=== PATIENT | female | born 1985 | race Caucasian/White ===

== ENCOUNTER 2021-01-11 20:54 | Emergency (ER) | payer SELFPAY ==
[~2021-01-11] VITALS: Ht 172.7 cm; Wt 150.0 kg
[2021-01-11] MEDS ORDERED: KETOROLAC 30 MG/ML VIAL. IVP ONE (22:00)
[2021-01-11] MEDS ORDERED: diphenhydrAMINE 50 MG/ML VIAL IVP ONE (22:00)
[2021-01-11] MEDS ORDERED: PROCHLORPERAZINE 10 MG/2 ML VIAL. IV ONE (22:00)
[2021-01-11] MEDS ORDERED: DEXAMETHASONE SOD PHOS 10 MG/ML VIAL. IV ONE (22:00)
[2021-01-11] MEDS ORDERED: acetaZOLAMIDE SODIUM 500 MG VIAL. IVP ONE (22:00)
--- NOTE | 2021-01-11 22:12 | PHYS DOC ---
Past History Additional Past Medical Histor: History of possible pseudotumor cerebri versus chronic migraine headaches Past Surgical History: Cholecystectomy Smoking: Non-smoker General Adult EDM: Chief Complaint: Chronic headaches, recently released from [facility] HPI: HPI: 36-year-old female has a long history of chronic headaches, the patient states that she has "migraines, they never really told me what it was I do not know", has had years of these headaches, says that she has a dull and throbbing bifrontal headache, associated with some nausea, no neck stiffness or photophobia, no fevers or chills, says that she had originally gone to the emergency room at [facility] and then had subsequently gotten admitted to the hospital, she said subsequently she had a consultation by neurologist and subsequently says that they had done a lumbar puncture and says "my pressure was 28 or something like that", they discharged her with a prescription for amitriptyline and Topamax, pt says. She has not seen a neurologist as an outpatient recently Review of Systems: Review of Systems: General: no fevers , no chills, no general weakness Eyes: no blurred vision, no diplopia Skin: no rashes Neck: no swelling, no neck stiffness, no neck pain Heme: no bleeding, no lymph node enlargement Ear/Nose/Throat: No sore throat, no runny nose, no hearing loss, no difficulty swallowing Cardiovascular: no Chest pain, no palpitations Respiratory: No dyspnea, no cough, no hemoptysis Gastrointestinal: No abdominal pain, + nausea, no vomiting, no diarrhea, no blood in stool Genitourinary: no dysuria, no hematuria Musculoskeletal: no back pain, no leg pain, no arm pain, no arthralgia Neurologic: + headaches, no dizziness, no focal numbness/tingling, no focal weakness Psych: no depression, no anxiety, no SI/HI *All review of systems are negative other than what is noted above Current Medications: Current Meds: Current Medications Medications (Trade) Dose Ordered Sig/Estefani Start Time Stop Time Status Last Admin Dose Admin Acetazolamide Sodium (Diamox Inj) 500 mg 1X ONCE 01/11/21 22:00 01/11/21 22:01 UNV Dexamethasone Sodium Phosphate (Decadron) 10 mg 1X ONCE 01/11/21 22:00 01/11/21 22:01 UNV Diphenhydramine HCl (Benadryl) 50 mg 1X ONCE 01/11/21 22:00 01/11/21 22:01 UNV Ketorolac Tromethamine (Toradol 30mg Vial) 30 mg 1X ONCE 01/11/21 22:00 01/11/21 22:01 UNV Prochlorperazine Edisylate (Compazine) 10 mg 1X ONCE 01/11/21 22:00 01/11/21 22:01 UNV Allergies: Allergies: Allergies Coded Allergies Type Severity Reaction Last Updated Verified ondansetron Allergy Unknown 01/11/21 Yes prednisone Allergy Unknown 01/11/21 Yes Physical Exam: PE: Gen-well appearing, no acute distress Head: Normocephalic/Atraumatic ENT: atraumatic, PERRLA, EOMI, oropharynx clear Neck: supple, full ROM/strength, no JVD, no nuchal rigidity Lungs: no distress, speaks in full sentences, Clear to auscultation bilaterally CV: reg rate, rhythm, no murmus/rubs/gallops, peripheral pulses equal in all extremities Abdomen: soft/nontender, no guarding/rebound tenderness, no rigidity, non distended, normoactive bowel sounds Musculoskeletal: full ROM/strength in all extremities, atraumatic, no swelling Back: full range of motion/strength Skin: intact, no rashes Lymph: no gross LUMA Neuro: alert and oriented x 4, CN 2-12 grossly intact, Motor strength is 5/5 in all extremities, no focal sensory deficits, no focal ataxia, ambulatory with mirian maninder gait Psych: normal mood/affect Current Patient Data: Labs: Laboratory Tests Test 01/11/21 21:38 POC Urine HCG, Qualitative hcg negative (Negative) Vital Signs: Vital Signs Date Time Temp Pulse Resp B/P (MAP) Pulse Ox O2 Delivery O2 Flow Rate FiO2 01/11/21 20:55 98.0 98 18 124/77 98 Room Air EKG: EKG: [] Radiology/Procedures: Radiology/Procedures: [] Heart Score: C/O Chest Pain: No Risk Factors: Risk Factors: DM, Current or recent (<one month) smoker, HTN, HLP, family history of CAD, obesity. Risk Scores: Score 0 - 3: 2.5% MACE over next 6 weeks - Discharge Home Score 4 - 6: 20.3% MACE over next 6 weeks - Admit for Clinical Observation Score 7 - 10: 72.7% MACE over next 6 weeks - Early Invasive Strategies Course & Med Decision Making: Course & Med Decision Making Pertinent Labs and Imaging studies reviewed. (See chart for details) [] 36-year-old female presents to the emergency department with what appears to be an acute on chronic headache and her prior history is suspicious for possible pseudotumor cerebri versus chronic migraine headache, the headache was of gradual onset not thunderclap in nature, the patient is neurologically intact, no focal findings and specifically no clinical signs of any papilledema or vision impairment, differential included not limited to tension headache, cluster headache, unlikely any intracranial bleeding, stroke, meningitis or venous sinus thrombosis, she will be given a series of medications, leaves to treat headaches in the emergency room and I will also give her some Diamox, unclear if this had been given to her in the past medical indication for ED work-up or imaging, will reevaluate examined her in the midst of a work-up to determine the best course of action at that point Update at 1:25 AM: The patient is now feeling better, head CT was performed abdomen abundance of caution and is negative, I believe she stable for discharge at the time of her close up patient primary care follow-up Patient was seen in the ED for chronic headaches, improved in the ED there is no apparent evidence of any emergency medical pathology at this time, patient was advised follow-up with their primary care provider /physician in the next 24-48 hours, also with neurology in the same timeframe, and to return to the ED before then if any new or worsening / concerning symptoms had developed. All questions and concerns were addressed at time of disposition I will add on Diamox to her regimen at of a presumption for possible pseudotumor cerebri and I will also add on naproxen a known medicine to treat migraine headaches as well as a nausea medicine Angion Disclaimer: Yumiko Disclaimer: This electronic medical record was generated, in whole or in part, using a voice recognition dictation system. Departure Departure: Impression: Primary Impression: Headache Qualified Codes: R51.9 - Headache, unspecified Disposition: HOME / SELF CARE / HOMELESS Condition: IMPROVED Referrals: ANDREAS HERNANDEZ MD, AMMAR MD Patient Instructions: General Headache Without Cause, Idiopathic Intracranial Hypertension Additional Instructions: I recommend you follow-up with a neurologist and I am referring you to Dr. Gregory, and to a primary care doctor and I recommend he follow-up with him in the next 48 hours, I am going to add on acetazolamide which is a medicine commonly used to treat idiopathic intracranial hypertension which you may have but I think you need to see a neurologist to get a final formal diagnosis. Return to the nearest emergency room before follow-up with any new or worsening/concerning symptoms develop Scripts Methylprednisolone (MEDROL) 4 Mg Tab.ds.pk 1 PKG PO UD for for headache, #1 PKG Prov: BIBI ORNELAS MD 01/12/21 Acetazolamide (ACETAZOLAMIDE) 125 Mg Tablet 1 TAB PO BID for pain for 15 Days, #30 TAB 0 Refills Prov: BIBI ORNELAS MD 01/12/21 Naproxen Sodium (ANAPROX DS) 550 Mg Tablet 1 TAB PO BID for pain for 15 Days, #30 TAB 0 Refills Prov: BIBI ORNELAS MD 01/12/21 BIBI ORNELAS MD Jan 11, 2021 22:12
[2021-01-12] MEDS ORDERED: HYDROcodone/APAP 5/325MG 1 TAB TABLET PO ONE (00:45)
[2021-01-12 01:22] VITALS: BP 115/64
[2021-01-12] MEDS ORDERED: METH4TAB2 PO (01:28)
[2021-01-12] MEDS ORDERED: NAPR-682 PO (01:28)
[2021-01-12] MEDS ORDERED: ACET125T2 PO (01:28)
--- NOTE | 2021-01-12 02:42 | RAD ---
EXAM: CT HEAD WITHOUT CONTRAST. HISTORY: Persistent headache. TECHNIQUE: Computed tomography of the head was performed without intravenous contrast. One or more of the following individualized dose reduction techniques were utilized for this examination: 1. Automated exposure control. 2. Adjustment of the mA and/or kV according to patient size. 3. Use of iterative reconstruction technique. COMPARISON: None. FINDINGS: There is no intracranial hemorrhage. Kingsley-white differentiation is preserved. The ventricle s are normal in size and position. The visualized paranasal sinuses appear clear. The orbits are unremarkable. The temporal bones are un remarkable. The calvarium reveals no suspicious lesions. IMPRESSION: 1. No acute intracranial findings. Electronically signed by: Cherrie Morocho MD (01/12/2021 2:40 AM) [facility]
== END 2021-01-12 01:40 | disposition home or self-care (01) ==
LOC: ER 20:54
DX: R51.9 Headache, unspecified (principal); R11.0 Nausea; Z88.8 Allergy status to other drugs, medicaments and biological substances
CPT/HCPCS: 70450; 81025; 96374; 96375; 99285; J0780; J1100; J1120; J1200; J1885

== ENCOUNTER 2021-01-19 03:42 | Emergency (ER) | payer SELFPAY ==
[~2021-01-19] VITALS: Ht 172.7 cm; Wt 150.0 kg
[2021-01-19 03:42] VITALS: BP 135/88
[~2021-01-19 03:42] MED LIST: ACET125T2 PO; METH4TAB2 PO; NAPR-682 PO
[2021-01-19] MEDS ORDERED: KETOROLAC 30 MG/ML VIAL. IVP ONE (04:00)
[2021-01-19] MEDS ORDERED: diphenhydrAMINE 50 MG/ML VIAL IVP ONE (04:00)
[2021-01-19] MEDS ORDERED: IV NORMAL SALINE 1,000ML 1,000 ML IV ONE (04:00)
[2021-01-19] MEDS ORDERED: METOCLOPRAMIDE HCL 10 MG/2 ML VIAL. IVP ONE (04:00)
--- NOTE | 2021-01-19 04:07 | PHYS DOC ---
Past History Additional Past Medical Histor: History of possible pseudotumor cerebri versus chronic migraine headaches Past Surgical History: Cholecystectomy Smoking: Non-smoker Alcohol Use: None General Adult EDM: Chief Complaint: HEADACHE HPI: HPI: 36-year-old female presents with headache and fall at home. The patient told the nurse that she has had a headache for 24 days. She was seen recently in this emergency room as well as the [facility] system. She tells me that she came in tonight because she was getting out of the shower and she slipped and hit her head. No loss of consciousness. This made her headache worse and she was concerned. She denies any numbness, tingling, altered sensation. She has stated intermittent losses of vision, but states that this has been going on for a while. She has had episodes of vomiting today and yesterday which has made her unable to take her migraine prophylactic medications. She denies fever or chills. She denies any other injuries at this time. Review of Systems: Review of Systems: Constitutional: Denies fever or chills Eyes: Denies change in visual acuity HENT: Denies nasal congestion or sore throat Respiratory: Denies cough or shortness of breath Cardiovascular: Denies chest pain or edema GI: Denies abdominal pain, nausea, vomiting, bloody stools or diarrhea : Denies dysuria Musculoskeletal: Denies back pain or joint pain Integument: Denies rash Neurologic: Headache. Denies focal weakness or sensory changes Endocrine: Denies polyuria or polydipsia Lymphatic: Denies swollen glands Psychiatric: Denies depression or anxiety Current Medications: Current Meds: Current Medications Medications (Trade) Dose Ordered Sig/Estefani Start Time Stop Time Status Last Admin Dose Admin Diphenhydramine HCl (Benadryl) 25 mg 1X ONCE 01/19/21 04:00 01/19/21 04:01 DC Ketorolac Tromethamine (Toradol 30mg Vial) 30 mg 1X ONCE 01/19/21 04:00 01/19/21 04:01 DC Metoclopramide HCl (Reglan Vial) 10 mg 1X ONCE 01/19/21 04:00 01/19/21 04:01 DC Sodium Chloride 1,000 ml @ 1,000 mls/hr 1X ONCE 01/19/21 04:00 01/19/21 04:59 Allergies: Allergies: Allergies Coded Allergies Type Severity Reaction Last Updated Verified ondansetron Allergy Unknown 01/11/21 Yes prednisone Allergy Unknown 01/11/21 Yes Physical Exam: PE: Constitutional: Well developed, well nourished, morbidly obese, no acute distress, non-toxic appearance. [] HENT: Normocephalic, atraumatic, bilateral external ears normal, oropharynx moist, no oral exudates, nose normal. [] Eyes: PERRLA, EOMI, conjunctiva normal, no discharge. [] Neck: Normal range of motion, no tenderness, supple, no stridor. [] Cardiovascular: Heart rate regular rhythm, no murmur [] Lungs & Thorax: Bilateral breath sounds clear to auscultation [] Abdomen: Bowel sounds normal, soft, no tenderness, no masses, no pulsatile masses. [] Skin: Warm, dry, no erythema, no rash. [] Back: No tenderness, no CVA tenderness. [] Extremities: No tenderness, no cyanosis, no clubbing, ROM intact, no edema. [] Neurologic: Alert and oriented X 3, normal motor function, normal sensory function, no focal deficits noted. [] Psychologic: Affect normal, judgement normal, mood anxious. [] EKG: EKG: [] Radiology/Procedures: Radiology/Procedures: [] Impressions: STUDY: CT head without contrast INDICATION: Headache. COMPARISON: 01/11/2021 TECHNIQUE: Axial CT imaging through the head without the use of intravenous contrast. Sagittal and coronal reformats were obtained. One or more of the following individualized dose reduction techniques were u tilized for this examination: 1. Automated exposure control 2. Adjustment of the mA and/or kV according to patient size 3. Use of iterative reconstruction technique. FINDINGS: No acute intracranial hemorrhage. No mass effect, midline shift or hydrocep halus. Kingsley-white matter differentiation is maintained. Unremarkable calvarium. No layering fluid seen within the visualized paranasal sinuses. Unremarkable mastoid air cells and middle ears. IMPRESSION: No acute intracranial abnormality by CT. No change from the 01/12/2021 comparison. Electronically signed by: GLORIA NARAYANAN MD (01/19/2021 4:08 AM) [facility] DICTATED AND SIGNED BY: GLORIA NARAYANAN MD DATE: 01/19/21406 CC: CHRIS MONTOYA DO; PCP,NO ~MTH0 0 Heart Score: C/O Chest Pain: N/A Risk Factors: Risk Factors: DM, Current or recent (<one month) smoker, HTN, HLP, family history of CAD, obesity. Risk Scores: Score 0 - 3: 2.5% MACE over next 6 weeks - Discharge Home Score 4 - 6: 20.3% MACE over next 6 weeks - Admit for Clinical Observation Score 7 - 10: 72.7% MACE over next 6 weeks - Early Invasive Strategies Course & Med Decision Making: Course & Med Decision Making Pertinent Labs and Imaging studies reviewed. (See chart for details) The patient's head CT is unremarkable. For her headache I have ordered a liter normal saline, 30 mg of Toradol, 10 mg Reglan, 25 mg of Benadryl. I have not ordered steroids as she has prednisone listed as an allergy. The patient is not feeling better so I will give her a little bit of morphine for her headache. Her labs are unremarkable. She does not meet admission criteria. She is stable for discharge at this time. [] Yumiko Disclaimer: Yumiko Disclaimer: This electronic medical record was generated, in whole or in part, using a voice recognition dictation system. Departure Departure: Impression: Primary Impression: Headache Qualified Codes: R51.9 - Headache, unspecified Additional Impression: Fall in shower Disposition: 01 HOME / SELF CARE / HOMELESS Condition: STABLE Referrals: [facility] (PCP) Patient Instructions: Recurrent Migraine Headache, [id number] CHRIS MONTOYA DO Jan 19, 2021 04:07
--- NOTE | 2021-01-19 04:10 | RAD ---
STUDY: CT head without contrast INDICATION: Headache. COMPARISON: 01/11/2021 TECHNIQUE: Axial CT imaging through the head without the use of intravenous contrast. Sagittal and co juliana reformats were obtained. One or more of the following individualized dose reduction techniques were utilized for this examinat ion: 1. Automated exposure control 2. Adjustment of the mA and/or kV according to patient size 3. Use of iterative reconstruction technique. FINDINGS: No acute intracranial hemorrhage. No mass effect, midline shift or hydrocephalus. Kingsley-white matter d ifferentiation is maintained. Unremarkable calvarium. No layering fluid seen within the visualized paranasal sinuses. Unremarkable mastoid air cells and middle ears. IMPRESSION: No acute intracranial abnormality by CT. No change from the 01/12/2021 comparison. Electronically signed by: GLORIA NARAYANAN MD (01/19/2021 4:08 AM) [facility]
[2021-01-19 04:50] LABS: BASO # 0.1 x10^3/uL (0.0-0.2); BASO % 1 % (0-3); EOS # 0.3 x10^3/uL (0.0-0.7); EOS % 4 % (0-3); HEMOGLOBIN 11.9 g/dL (12.0-15.5); LYMPH # 1.8 x10^3/uL (1.0-4.8); LYMPH % 22 % (24-48); MEAN CORPUSCULAR HEMOGLOBIN 32 pg (25-35); MEAN CORPUSCULAR HGB CONC 32 g/dL (31-37); MEAN CORPUSCULAR VOLUME 99 fL (79-100); MONO # 0.7 x10^3/uL (0.0-1.1); MONO % 9 % (0-9); NEUT # 5.3 x10^3uL (1.8-7.7); NEUT % 65 % (31-73); PLATELET COUNT 219 x10^3/uL (140-400); RED BLOOD COUNT 3.74 x10^6/uL (3.50-5.40); WHITE BLOOD COUNT 8.1 x10^3/uL (4.0-11.0)
[2021-01-19 04:59] LABS: CALCIUM 8.7 mg/dL (8.5-10.1); GFR 62.4; POTASSIUM 4.2 mmol/L (3.5-5.1)
[2021-01-19 05:05] LABS: ALBUMIN 3.1 g/dL (3.4-5.0); ALBUMIN/GLOBULIN RATIO 0.7 (1.0-1.7); TOTAL BILIRUBIN 0.2 mg/dL (0.2-1.0); TOTAL PROTEIN 7.4 g/dL (6.4-8.2)
[2021-01-19] MEDS ORDERED: MORPHINE SULFATE 4 MG/ML DISP.SYRIN. IV ONE (06:15)
== END 2021-01-19 07:45 | disposition home or self-care (01) ==
LOC: ER 03:42
DX: R51.9 Headache, unspecified (principal); R11.10 Vomiting, unspecified; W18.2XXA Fall in (into) shower or empty bathtub, initial encounter; Y93.89 Activity, other specified; Y92.098 Other place in other non-institutional residence as the place of occurrence of the external cause; Y99.8 Other external cause status; Z88.8 Allergy status to other drugs, medicaments and biological substances
CPT/HCPCS: 36415; 70450; 80053; 85025; 96361; 96374; 96375; 99284; J1200; J1885; J2270; J2765; J7030